=== PATIENT | female | born 1965 | race Caucasian/White ===

== ENCOUNTER → 2017-11-07 07:27 | Outpatient (CLI) | payer OTHER, SELFPAY ==
--- NOTE | 2017-11-07 07:31 | RAD_ITS ---
STUDY: X-RAY - RIGHT KNEE REASON FOR EXAM: Female, 52 years old. Chronic knee pain. TECHNIQUE: 4 view(s) of the knee. COMPARISON: None. FINDINGS: Normal visualized distal femur. Normal visualized proximal tibia and fibula. Normal proximal tibiofibular articulation. Normal medial femorotibial compartment. Normal lateral femorotibial compartment. Normal patellofemoral articulation. The soft tissue structures are unremarkable. RAD/Knee 4 or More Views IMPRESSION: Normal x-ray examination of the knee. Electronically Signed: Axel Birch MD at 15:47 EST Tel [phone], Service support ,
== END ==
PROVIDERS: Family Provider Internal Medicine; PCP Internal Medicine; Visit Provider Internal Medicine
DX: M25.561 Pain in right knee (principal)
CPT/HCPCS: 73564

== ENCOUNTER 2017-11-17 06:57 | Outpatient (RCR) | payer OTHER, SELFPAY ==
--- NOTE | 2017-11-17 07:50 | HP.PTEVAL_ITS ---
Patient's Visit Information OMAR MCNEAL is a 52 year old F referred to Physical Therapy by DO JUSTO Shah with a diagnosis of Knee Pain. Date of Evaluation: 11/17/17 Physical Therapist: Muna Souza - Visit Plan Plan: Hold- return to MD for further evaluation- possible meniscal tear - Subjective Subjective: Patient reports that the right knee has been sore for about 5 weeks. So painful so she knew she couldn't run. Thought either OA or strain. Pain is located on the medial side. Was getting better but felt like she backslide yesterday- no known injurry. Took a 5 mile walk with hills. Has had x-rays but no MRI. Went to see Dr. Grey who put her on 400 Advil 2x a day. Agg : driving, standing up from sitting. worst: 7/10 Best: 1/10 eases: trying to rest. workout 5-6x a week- running, lifting weights- does some pool. radiates to the hip stinging every once in awhile. Describes pain as sharp but then changes to an ache. Sleep: it has when she moves position. Wears good shoes and orthotics. Sprained the knee a long time ago. PMHx: none Meds: none - Objective Posture: good throughout. Gait: no deviation. Stairs: asc/desc 8 recip with 1 HR- poor descending pattern with decreased control with pain. HR/TR: WNL. Balance: 30 sec SLS without. Squat: good technique with pain. Palpation: tender along medial joint line. ROM: 0-130 degrees. Strength: 5/5 throughout LE Core: good. Flex: HS: moderate, Gastroc: moderate - Rehabilitation Potential Physical Therapy Diagnosis: Patient presents with hypomobility- she has increased pain with ADL's and recreational actvities - Anticipated Interventions Patient/Client Instruction: Educate patient on: Benefits of Fitness Program For the Purpose of:: To increase tolerance to activity/condition/position Thank you for the opportunity to evaluate your patient. For Medicare and Medicare HMO plans, please review the plan of care and approve it. It will need to be FAXED BACK to us at [phone] for Medicare purposes. Please let me know if there are questions or concerns regarding this plan of care. Physician Signature: Date:
--- NOTE | 2017-12-22 10:56 | HP.PTDCSUM ---
HP - PT D/C Summary It has been my pleasure to treat OMAR MCNEAL under orders from Joselin Grey DO, for the diagnosis of Knee Pain for a total of 1 visit(s). Discharge Date: Please see the following information for a summary of their discharge status. - Plan Plan: Hold- return to MD for further evaluation- possible meniscal tear - D/C Information If there are questions or concerns regarding this patient's physical therapy, please feel free to call me at [phone]. Thank you for the referral of this patient. Sincerely, Muna Souza
== END 2017-11-17 19:00 | disposition home or self-care (01) ==
LOC: PT 06:57
PROVIDERS: Family Provider Internal Medicine; PCP Internal Medicine; Visit Provider Internal Medicine
DX: M25.561 Pain in right knee (principal)
CPT/HCPCS: 97161

== ENCOUNTER → 2017-12-01 07:00 | Outpatient (CLI) | payer OTHER, SELFPAY ==
--- NOTE | 2017-12-01 06:59 | HPBI_ITS ---
MAMMOGRAPHY - BILATERAL SCREENING REASON FOR EXAM: Female, 52 years old. Routine annual screening examination. PERTINENT HISTORY: Sister with breast cancer. TECHNIQUE: Digital bilateral breast audi (3D mammographic acquisition) in the CC and MLO projections. 2-D mediolateral oblique (MLO) and craniocaudad (CC) views of both breasts were obtained. CAD: Full Field Digital Mammography with Computer Added Detection was performed. COMPARISON: Comparison is made with prior study dated November 28, 2016 and November 28, 2015. FINDINGS: Breast Composition: There are scattered areas of fibroglandular density. There are no dominant masses or suspicious calcifications. No other significant abnormalities are identified. There has been no significant change since the prior study. HPBI/SCREENING MAMM (CAD), BILAT IMPRESSION: Stable bilateral screening mammogram. Yearly follow-up mammogram recommended. (A) ASSESSMENT CATEGORY: BIRADS Category 1: Negative. A letter regarding these results will be sent to the patient by the facility within 30 days. Approximately 10% of breast cancers are not detected by mammography. A normal mammogram should not delay biopsy of a clinically suspicious abnormality. [id number] Electronically Signed: Axel Birch MD at 8:16 EDT Tel [phone], Service support ,
== END ==
PROVIDERS: Family Provider Internal Medicine; PCP Internal Medicine; Visit Provider Obstetrics & Gynecology
DX: Z12.31 Encounter for screening mammogram for malignant neoplasm of breast (principal)
CPT/HCPCS: 77063; 77067

== ENCOUNTER → 2017-12-22 06:47 | Outpatient (CLI) | payer OTHER, SELFPAY ==
--- NOTE | 2017-12-22 06:51 | MRI_ITS ---
STUDY: MRI RIGHT KNEE REASON FOR EXAM: Medial right knee pain for about 6 weeks, rule out meniscal tear. TECHNIQUE: Standardized fat and water weighted pulse sequences were obtained in all 3 orthogonal planes. COMPARISON: Radiographs 11/07/2017. FINDINGS: There is a small complex tear of the posterior horn of the medial meniscus (proton-density sagittal images 32, 33). There is mild peripheral subluxation of the medial meniscus. Normal hyaline cartilage of the medial femorotibial compartment. Normal medial femoral condyle and tibial plateau. There is mild periligamentous inflammation of the medial collateral ligament (T2 coronal images 15, 16). Normal distal semimembranosus, gracilis and semitendinosus tendons. There may be a small horizontal tear of the superior articular surface of the posterior horn of the lateral meniscus, identified only on a single slice (proton-density sagittal image 11). Normal hyaline cartilage of the lateral femorotibial compartment. Normal lateral femoral condyle and tibial plateau. Normal proximal tibiofibular articulation. Normal lateral collateral (fibular) ligament. Normal popliteus tendon. Normal biceps femoris tendon. Normal anterior cruciate ligament (ACL). Normal posterior cruciate ligament (PCL). Normal congruent patellofemoral articulation. Normal hyaline cartilage of the patellofemoral compartment. Normal medial and lateral patellar retinaculum. Normal visualized quadriceps tendon. Normal patellar tendon. Normal Hoffa's fat pad. There is a small joint effusion. There is a small popliteal cyst with mild extravasation of fluid (T2 sagittal images 18, 19). The otherwise visualized osseous structures are unremarkable. MRI/Lower Ext Joint Only (Routine) IMPRESSION: Small medial meniscal tear. Mild periligamentous inflammation of the medial collateral ligament. There may be a small lateral meniscal tear, identified only on a single slice. Small joint effusion. Small popliteal cyst with mild extravasation of fluid. Electronically Signed: Zen Donovan MD at 8:46 EDT Tel , Service support ,
== END ==
PROVIDERS: Family Provider Internal Medicine; PCP Internal Medicine; Visit Provider Internal Medicine
DX: S83.241A Other tear of medial meniscus, current injury, right knee, initial encounter (principal); X58.XXXA Exposure to other specified factors, initial encounter; M71.21 Synovial cyst of popliteal space [Baker], right knee
CPT/HCPCS: 73721

== ENCOUNTER → 2018-01-20 09:00 | Outpatient (CLI) | payer OTHER, SELFPAY ==
--- NOTE | 2018-01-20 09:12 | EKG12_ITS ---
Test Reason : PRE OP Blood Pressure : / mmHG Vent. Rate : 071 BPM Atrial Rate : 071 BPM P-R Int : 146 ms QRS Dur : 082 ms QT Int : 390 ms P-R-T Axes : 074 057 057 degrees QTc Int : 423 ms Normal sinus rhythm Normal ECG Confirmed by SOPHIA ESPINOSA, RICCI ([id number]), assistant film editor ARYAN MCNEAL ([id number]) on 01/21/2018 2:18:06 PM Referred By: Yaniv Brown Confirmed By:RICCI CORTES MD
[2018-01-20 15:28] LABS: Hematocrit 38.6 % (37-47); Hemoglobin 12.9 g/dl (12.0-15.0); Mean Corp Hgb Conc 33.4 g/gl (32-36); Mean Corpuscular Hgb 31.7 pg (27.0-32.0); Mean Corpuscular Volume 94.8 fL (81-99); Mean Platelet Vol. 9.4 fl (6.2-12.0); Platelet Count 245 K/mm3 (150-450); RBC Distribution Width CV 12.4 % (11.6-14.6); RBC Distribution Width SD 42.2 fl (35.1-43.9); Red Blood Count 4.07 M/mm3 (4.2-5.4); White Blood Count 6.6 K/mm3 (4.4-11.0)
[2018-01-20 15:40] LABS: Anion Gap 8 (5-15); BUN 24 mg/dL (7-18); BUN/Creat Ratio 27.9 RATIO (10-20); Calcium,Total 8.7 mg/dL (8.5-10.1); Chloride 107 mmol/L (98-107); Creatinine, Serum 0.86 mg/dL (0.55-1.02); EST Glomerular Filtration Rate 73 mL/min (>60); Est Glom Filt Rate - Afr Amer 88 mL/min (>60); Glucose 75 mg/dL (74-106); Potassium 4.2 mmol/L (3.5-5.1); Sodium Level 141 mmol/L (136-145)
[2018-01-20 15:41] LABS: Scan Indicated on CBC? Y/N NO
== END ==
PROVIDERS: Family Provider Internal Medicine; PCP Internal Medicine; Visit Provider Physician Assistant
DX: Z01.818 Encounter for other preprocedural examination (principal); Z01.810 Encounter for preprocedural cardiovascular examination
CPT/HCPCS: 36415; 80048; 85027; 93005

== ENCOUNTER 2018-02-27 07:00 | Outpatient (RCR) | payer OTHER, SELFPAY ==
--- NOTE | 2018-02-06 09:37 | HP.PTEVAL_ITS ---
Patient's Visit Information OMAR MCNEAL is a 53 year old F referred to Physical Therapy by Yaniv Brown with a diagnosis of Right Knee Scope. Date of Evaluation: 02/06/18 Physical Therapist: Muna Souza - Visit Plan Frequency: 2x /Week Duration: 2 Weeks Plan: Focus on LE ROM and strength with functional mobility - Subjective Subjective: Patient had a knee scope by Dr. Toussaint on 01/30/18. She went home on the day of surgery and has been doing well. She has more discomfort with flexion than extension. Pain at its worst is a 2/10 and best is a 0/10. Pain is aggravated by bending and being up on the leg for long periods of time. Eases include ice, elevation and rest. She is very active and prior to surgery she was working out 3-5x a week including cardio and lifting. Work: physician at [email or web address]. Sleep: not disturbed. PMHx/Meds: see chart - Objective Posture: FH, RS- can correct with verbal cues. Gait: slightly antalgic- decreased heel/toe pattern secondary to decreased ROM. Stairs: asc/desc recip with 1 HR with poor control/pattern. HR/TR: able with reports of outside stretching. SLS: 30 sec with increased muscle activation. Palpation: not tender. Observation: incision healing with sutures intact. mild bruising around the knee. ROM: 5-100 degrees with discomfort at end range. Strength: Ankle: 5/5, Knee: quad set visible, Hip: 4+/5 core: fair plus - Goals Goal 1:: Patient will be I with HEP and progression Goal Time Frame: 4-6 Weeks Goal 2:: Patient will asc/desc 8 stairs recip with good control Goal Time Frame: 4-6 Weeks Goal 3:: Patient will ambulate >300 feet with a normalized gait pattern Goal Time Frame: 4-6 Weeks Goal 4:: Patient will demo 0-125 degrees of ROM in the knee Goal Time Frame: 4-6 Weeks - Rehabilitation Potential Physical Therapy Diagnosis: Patient presents with hypomobility- she has decreased ROM, strength and muscular endurance s/p knee scope leading to abnormal gait pattern and decreased ability to perform ALD's. Rehabilitation Potential: Good - Anticipated Interventions Patient/Client Instruction: Educate patient on: Benefits of Fitness Program For the Purpose of:: To improve ability to perform ADL's Therapeutic Exercise to Include: Strength training, Endurance training, Balance training, Agility training, Body mechanics, Gait and locomotor training, Passive ROM, Active ROM, Dynamic Lumbar Stabilization For the Purpose of:: To improve muscle performance and motor function TENS: Yes Cryotherapy (ice pack, ice massage): Yes Thermo therapy (hot pack): Yes Ultrasound (thermal/non thermal): Yes For the Purpose of:: To decrease pain Thank you for the opportunity to evaluate your patient. For Medicare and Medicare HMO plans, please review the plan of care and approve it. It will need to be FAXED BACK to us at [phone] for Medicare purposes. Please let me know if there are questions or concerns regarding this plan of care. Physician Signature: Date:
--- NOTE | 2018-02-27 07:29 | HP.PTDCSUM_ITS ---
HP - PT D/C Summary It has been my pleasure to treat OMAR MCNEAL under orders from Yaniv Brown , for the diagnosis of Right Knee Scope for a total of 7 visit(s). Discharge Date: Please see the following information for a summary of their discharge status. - Subjective Subjective: Patient reports a catch every so often- then it gets better. She can get through the day at work without issues. Pain is minimal if anything- is working out with [employer] again. - Overall Improvement % Improvement: 85 - Objective Objective/Function: Posture: good throughout. Gait: no deviation noted. Squat : good technique- not past 90 degrees. HR.TR: good. SLS: 30 sec. rom: 0-130 degrees. Strength: left flex: 35,36,36 extn: 61,58,67. Right flxn: 31,46,39, extn: 54, 60,75 - Goals Goal 1:: Patient will be I with HEP and progression Goal Progress: Goal Met Goal 2:: Patient will asc/desc 8 stairs recip with good control Goal Progress: Goal Met Goal 3:: Patient will ambulate >300 feet with a normalized gait pattern Goal Progress: Goal Met Goal 4:: Patient will demo 0-125 degrees of ROM in the knee Goal Progress: Goal Met - Plan Plan: Discharge to HEP - D/C Information If there are questions or concerns regarding this patient's physical therapy, please feel free to call me at [phone]. Thank you for the referral of this patient. Sincerely, Muna Souza
== END 2018-02-27 19:00 | disposition home or self-care (01) ==
LOC: PT 07:00
PROVIDERS: Family Provider Internal Medicine; PCP Internal Medicine; Visit Provider Physician Assistant
DX: S83.281D Other tear of lateral meniscus, current injury, right knee, subsequent encounter (principal); S83.241D Other tear of medial meniscus, current injury, right knee, subsequent encounter
CPT/HCPCS: 97110; 97161; 97164

== ENCOUNTER → 2018-06-16 07:56 | Outpatient (CLI) | payer OTHER, SELFPAY ==
--- NOTE | 2018-06-16 08:10 | US_ITS ---
STUDY: THYROID ULTRASOUND REASON FOR EXAM: Female, 53 years old. History of nodules TECHNIQUE: Ultrasound evaluation of the thyroid was performed with real-time and static vásquez-scale imaging. COMPARISON: November 28, 2016 ultrasound thyroid FINDINGS: RIGHT LOBE: The right lobe of the thyroid gland measures 4.6 x 1.6 x 1.3 cm. There is a heterogeneous echotexture. There is a right to midline isoechoic nodule adjacent to the thyroid that measures 9.3 x 5.9 mm. This shows focal peripheral vascularity. This is relatively similar to the prior study. There is overall inhomogeneity of the thyroid. The cystic spaces that were seen on the prior study in the right thyroid are not well-visualized. LEFT LOBE: The left lobe of the thyroid gland measures 4.1 x 1.4 x 1.0 cm. There is a heterogeneous echotexture. There is a lower pole hyperechoic nodule with some posterior shadowing measuring 2 x 3 x 2 mm. ISTHMUS: The isthmus measures 2 mm. . The regional lymph nodes are normal. US/Thyroid IMPRESSION: Resolution of the colloid cyst in the right thyroid. Stable isoechoic nodules within the right thyroid/isthmus. Stable isoechoic nodule in the left thyroid and/or calcification with shadowing. Electronically Signed: Nerissa Vo MD at 18:57 EDT Tel , Service support ,
--- NOTE | 2018-06-16 08:20 | BD_ITS ---
STUDY: DUAL ENERGY X-RAY ABSORPTIOMETRY / DXA REASON FOR EXAM: Female, 53 years old. The patient is postmenopausal. Loss of height. TECHNIQUE: Bone Mineral Density (BMD) measurements of lumbar spine and bilateral hips were obtained. COMPARISON: Comparison is made with prior study dated November 28, 2015. FINDINGS: Lumbar Spine (L1-L4): g/cm2 (1.096) / T-score (-0.7) / Z-score (0.0) Findings are suggestive of normal bone density with a low fracture risk. Increased kyphosis. Left Femur Total: g/cm2 (1.047) / T-score (0.3) / Z-score (0.9) Left Femoral Neck: g/cm2 (0.993) / T-score (-0.3) / Z-score (0.7) Right Femur Total: g/cm2 (0.888) / T-score (-1.0) / Z-score (-0.3) Right Femoral Neck: g/cm2 (0.844) / T-score (-1.4) / Z-score (-0.4) The T-Scores on the most recent prior examination were: Lumbar Spine (L1-L4): There has been worsening of bone density since the previous examination. Left Femur Total: which represents a worsening of 3.2%. Right Femur Total: which represents a worsening of 8.5%. BD/Dexa Bone Density Study IMPRESSION: The patient is considered osteopenic as outlined below according to World Rub[employer] Organization (WHO) criteria with a moderate fracture risk. There has been worsening of bone density since the previous examination. Reference Information: The T-score is the number of standard deviations above or below the standard which is normal for young adults at their peak bone mineral density. The World Health Organization (WHO) interprets the T-scores as follows: Above -1 Normal bone density Between -1 and -2.5 Osteopenia Equal to / or below -2.5 Osteoporosis As a practical clinical guideline, osteopenia may be graded as follows: Mild -1 through -1.5 Moderate -1.6 through -2.0 Severe -2.1 through -2.4 The Z-score is the number of standard deviations above or below age-matched controls. A Z-score of less than -1.5 would be considered abnormal. References: 1. NIH Osteoporosis and Related Bone Diseases http://www.osteo.org 2. International Society for Clinical Densitometry http://www.iscd.org 3. National Osteoporosis Foundation http://www.nof.org Electronically Signed: Axel Birch MD at 13:38 EDT Tel [phone], Service support ,
== END ==
PROVIDERS: Family Provider Internal Medicine; PCP Internal Medicine; Visit Provider Internal Medicine
DX: E04.1 Nontoxic single thyroid nodule (principal); Z78.0 Asymptomatic menopausal state
CPT/HCPCS: 76536; 77080

== ENCOUNTER → 2018-12-16 07:00 | Outpatient (CLI) | payer OTHER, SELFPAY ==
--- NOTE | 2018-12-16 07:04 | BI_ITS ---
MAMMOGRAPHY - BILATERAL SCREENING REASON FOR EXAM: Female, 53 years old. Routine annual screening examination. PERTINENT HISTORY: Sister with breast cancer. Aunts with breast cancer. TECHNIQUE: Digital bilateral breast audi (3D mammographic acquisition) in the CC and MLO projections. 2-D mediolateral oblique (MLO) and craniocaudad (CC) views of both breasts were obtained. CAD: Full Field Digital Mammography with Computer Added Detection was performed. COMPARISON: Comparison is made with prior examination dated December 01, 2017 and November 28, 2016. FINDINGS: Breast Composition: There are scattered areas of fibroglandular density. There are no dominant masses or suspicious calcifications. Stable asymmetry of breast tissue in the deep upper lateral aspect of the left breast. Correlation with ultrasound is recommended. No other significant abnormalities are identified. BI/SCREENING MAMM (CAD), BILAT IMPRESSION: Stable bilateral screening mammogram. Correlation with ultrasound of the deep upper lateral aspect of the left breast is recommended for further evaluation. ASSESSMENT CATEGORY: BIRADS Category 0: Incomplete. Need additional imaging evaluation. A letter regarding these results will be sent to the patient by the facility within 30 days. Approximately 10% of breast cancers are not detected by mammography. A normal mammogram should not delay biopsy of a clinically suspicious abnormality. [id number] Electronically Signed: Axel Birch, at 8:43 EDT , Service support ,
== END ==
PROVIDERS: Family Provider Internal Medicine; PCP Internal Medicine; Referring Provider Obstetrics & Gynecology; Visit Provider Obstetrics & Gynecology
DX: Z12.31 Encounter for screening mammogram for malignant neoplasm of breast (principal); Z80.3 Family history of malignant neoplasm of breast
CPT/HCPCS: 77063; 77067

== ENCOUNTER → 2018-12-18 07:23 | Outpatient (CLI) | payer OTHER, SELFPAY ==
--- NOTE | 2018-12-18 07:24 | US_ITS ---
STUDY: ULTRASOUND BREAST - LEFT REASON FOR EXAM: Female, 53 years old. Asymmetrical density in the upper outer quadrant of the left breast. TECHNIQUE: Axial and longitudinal images of the LEFT breast were performed with a high resolution ultrasound transducer. COMPARISON: Comparison is made with prior mammogram dated December 16, 2018. FINDINGS: LEFT Breast: There is a 1 cm x 1.6 cm x 0.2 cm cyst at the 2:00 position of the breast at 6 cm from nipple. US/Breast Limited Unilateral IMPRESSION: 1 cm x 1.6 cm x 0.2 cm cyst at the 2:00 position of the breast at 6 cm from the nipple. ASSESSMENT CATEGORY: BIRADS Category 2: Benign. A letter regarding these results will be sent to the patient by the facility within 30 days. Electronically Signed: Axel Birch, at 8:10 EDT , Service support ,
== END ==
PROVIDERS: Family Provider Internal Medicine; PCP Internal Medicine; Referring Provider Obstetrics & Gynecology; Visit Provider Obstetrics & Gynecology
DX: R92.8 Other abnormal and inconclusive findings on diagnostic imaging of breast (principal)
CPT/HCPCS: 76642

== ENCOUNTER → 2019-12-21 07:26 | Outpatient (CLI) | payer OTHER, SELFPAY ==
--- NOTE | 2019-12-21 07:30 | BI_ITS ---
MAMMOGRAPHY - BILATERAL SCREENING REASON FOR EXAM: Female, 54 years old. Routine annual screening examination. PERTINENT HISTORY: Sister with breast cancer. Aunt with breast cancer. TECHNIQUE: Digital bilateral breast saul (3D mammographic acquisition) in the CC and MLO projections. 2-D mediolateral oblique (MLO) and craniocaudad (CC) views of both breasts were obtained. CAD: Full Field Digital Mammography with Computer Added Detection was performed. COMPARISON: Comparison is made with prior examination dated December 16, 2018 and December 01, 2017. FINDINGS: Breast Composition: There are scattered areas of fibroglandular density. There are no dominant masses or suspicious calcifications. Stable 2.4 cm well-defined nodule in the axillary region of the left breast. Prior sonogram demonstrated this to be a cyst. Stable appearance of the benign-appearing bilateral axillary lymph nodes. No other significant abnormalities are identified. There has been no significant change since the prior study. BI/SCREEN MAMM (CAD) W/SAUL BILAT IMPRESSION: Stable bilateral screening mammogram. Yearly follow-up mammogram recommended. (A) ASSESSMENT CATEGORY: BIRADS Category 2: Benign. A letter regarding these results will be sent to the patient by the facility within 30 days. Approximately 10% of breast cancers are not detected by mammography. A normal mammogram should not delay biopsy of a clinically suspicious abnormality. [id number] Electronically Signed: Axel Birch, at 8:38 EDT , Service support ,
== END ==
PROVIDERS: Family Provider Internal Medicine; PCP Internal Medicine; Referring Provider Obstetrics & Gynecology; Visit Provider Obstetrics & Gynecology
DX: Z12.31 Encounter for screening mammogram for malignant neoplasm of breast (principal); Z80.3 Family history of malignant neoplasm of breast
CPT/HCPCS: 77063; 77067

== ENCOUNTER → 2020-12-26 07:18 | Outpatient (CLI) | payer OTHER, SELFPAY ==
--- NOTE | 2020-12-26 07:21 | BI_ITS ---
MAMMOGRAPHY - BILATERAL SCREENING REASON FOR EXAM: Female, 55 years old. Routine annual screening examination. PERTINENT HISTORY: Sister with breast cancer. Aunts with breast cancer. TECHNIQUE: Digital bilateral breast saul (3D mammographic acquisition) in the CC and MLO projections. 2-D mediolateral oblique (MLO) and craniocaudad (CC) views of both breasts were obtained. CAD: Full Field Digital Mammography with Computer Added Detection was performed. COMPARISON: Comparison is made with prior study dated 12/21/2019 and 12/16/2018. FINDINGS: Breast Composition: There are scattered areas of fibroglandular density. There are no dominant masses or suspicious calcifications. Stable asymmetry of breast tissue in the deep upper lateral aspect of the left breast. Prior sonogram demonstrated a cyst at that site. Stable benign-appearing bilateral axillary lymph nodes. No other significant abnormalities are identified. There has been no significant change since the prior study. BI/SCRN MAMM (CAD)W/SAUL BILAT IMPRESSION: Stable bilateral screening mammogram. Yearly follow-up mammogram recommended. (A) ASSESSMENT CATEGORY: BIRADS Category 2: Benign. A letter regarding these results will be sent to the patient by the facility within 30 days. Approximately 10% of breast cancers are not detected by mammography. A normal mammogram should not delay biopsy of a clinically suspicious abnormality. [id number] Electronically Signed: Axel Birch MD at 9:19 EDT , Service support ,
== END ==
PROVIDERS: PCP Internal Medicine; Referring Provider Obstetrics & Gynecology; Visit Provider Obstetrics & Gynecology
DX: Z12.31 Encounter for screening mammogram for malignant neoplasm of breast (principal)
CPT/HCPCS: 77063; 77067

== ENCOUNTER 2021-05-29 08:00 | Outpatient (RCR) | payer OTHER, SELFPAY ==
--- NOTE | 2021-04-25 10:04 | HP.PTEVAL_ITS ---
Patient's Visit Information OMAR MCNEAL is a 56 year old F referred to Physical Therapy by Dr. Joselin Grey DO with a diagnosis of Left Knee Pain. Date of Evaluation: 04/25/21 Physical Therapist: Muna Souza DPT - Visit Plan Frequency: 2x /Week Duration: 4 Weeks Plan: Focus on LE and core strength/stabilization - Subjective Patient reports that she was trying to run on the TM in December- the day before she had been walking and had a twinge- and then when she was running she felt a pop on the left knee- pain is located on bilateral joint lines but the medial side is worse. Fell March 18 tripped over the garbage can lid and ended up with a concussion and was bruised on both legs. Talked to [facility] who told her to ride bike backwards so she tried an ellip and its feeling a little better. Describes the pain in the knee as sharp when she first stands up then once she gets moving its dull and achy- more sharp with activity. Has not tried to run since it hurt. Worst: 12/23 Agg: running, twisting, standing up. Best: 09/24Eases: massage, cupping and ultrasound. Does have radiating pain into the calf and into the hip. No N/T in the toes. Does not describe any instability or buckling but is always are. Has had x-ray but no MRI at this point. No injections. Sleep: hard to get comfortable so she will sleep in her chair. Has not seen Orthopedics. 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 PMHx: reflux, high cholesterol, HTN Meds: prilosec, ibuprofen x2, meloxicam, lanasopril - Objective Posture: FH, RS- can correct but is unable to maintain. Gait: slightly antalgic- decrease stance on the left LE with decreased heel strike. HR/TR: able with pain reported with TR. SLS: 15 sec with increased muscle sway and muscle activation. Stairs: asc/desc 8 recip with no HR- poor control with descent. Palpation: tender along medial and lateral joint line- medial>lateral. ROM: 0-130 degrees- pain at end range. Strength: Core: fair, Hip: 4/5 throughout Knee: 4+/5, Ankle: 5/5. Special Test: Nilam: positive. Flex: HS: severe, Gastroc: moderate - Goals Goal 1:: Patient will be I with HEP and progression Goal Time Frame: 4-6 Weeks Goal 2:: Patient will squat with good mechanics Goal Time Frame: 4-6 Weeks Goal 3:: Patient will maintain proper posture t/o to demo increased core s/s Goal Time Frame: 4-6 Weeks Goal 4:: Patient will report no more than 2/10 pain for 1 week with all normal ADL's Goal Time Frame: 4-6 Weeks - Rehabilitation Potential Physical Therapy Diagnosis: Patient presents with hypomobility- she has decreased pain free ROM, LE and core strength/stabilization, flexibility and muscular endurance leading to pain with ADL's. Rehabilitation Potential: Fair - Anticipated Interventions Patient/Client Instruction: Educate patient on: Benefits of Fitness Program Therapeutic Exercise to Include: Strength training, Endurance training, Balance training, Coordination, Agility training, Body mechanics, Postural training, Flexibilty training, Gait and locomotor training, Neuromotor development, Dynamic Lumbar Stabilization, Scapular Strength/Stabilization For the Purpose of:: To improve muscle performance and motor function Thank you for the opportunity to evaluate your patient. For Medicare and Medicare HMO plans, please review the plan of care and approve it. It will need to be FAXED BACK to us at [phone] for Medicare purposes. For Medicare only, by signing this I certify the plan of care. Please let me know if there are questions or concerns regarding this plan of care. Physician Signature: Date:
--- NOTE | 2021-05-29 09:03 | HP.PTDCSUM ---
It has been my pleasure to treat OMRA MCNEAL referred by Dr. Joselin Grey DO, with the diagnosis of Left Knee Pain for a total of 7 visit(s). Discharge Date: 05/29/21 Please see the following information for a summary of their discharge status. Subjective: Pt. reports being about 95%. She reports overall much better. Pt. reports 0-1/10 pain after exercises this date. Objective/Function: Pt. has 5/5 strength throughout BLEs. Pt. has good ROM of her L knee 0-0-127deg. Pt. does have tight B HS, but symmetrical and non painful. Pt. has good squat mechanics with no lateral off loading or wt. shifting. Pt. is back to most activities, minus running. I talked to her about easing back into running with a walk to run program as tolerated. Pt. consents. She is to continue with her current exercise routine. Goal 1:: Patient will be I with HEP and progression Goal Progress: Goal Met Goal 2:: Patient will squat with good mechanics Goal Progress: Goal Met Goal 3:: Patient will maintain proper posture t/o to demo increased core s/s Goal Progress: Goal Met Goal 4:: Patient will report no more than 2/10 pain for 1 week with all normal ADL's Goal Progress: Goal Met Plan: DC to HEP at this point in time. Discharge Comments: Pt. did well with strengthening and stability exercises. Pt. is doing much better. she will be DC to HEP at this point in time. If there are questions or concerns regarding this patient's physical therapy, please feel free to call me at [phone]. Thank you for the referral of this patient. Sincerely, Rafat Kessleros, DPT Balance/Gait/Functional tests - Balance/Special Test Scores Lower Extremity Functional Score: 80
== END 2021-05-29 19:00 | disposition home or self-care (01) ==
LOC: PT 08:00
PROVIDERS: PCP Internal Medicine; Referring Provider Internal Medicine; Visit Provider Internal Medicine
DX: M25.561 Pain in right knee (principal); M25.562 Pain in left knee
CPT/HCPCS: 97110; 97162; 97164

== ENCOUNTER → 2022-01-29 | Outpatient (CLI) | payer OTHER, SELFPAY ==
--- NOTE | 2022-01-29 07:29 | BI_ITS ---
MAMMOGRAPHY - BILATERAL SCREENING REASON FOR EXAM: Female, 57 years old. Routine annual screening examination. PERTINENT HISTORY: Sister with breast cancer. Aunts with breast cancer. TECHNIQUE: Digital bilateral breast saul (3D mammographic acquisition) in the CC and MLO projections. 2-D mediolateral oblique (MLO) and craniocaudad (CC) views of both breasts were obtained. CAD: Full Field Digital Mammography with Computer Added Detection was performed. COMPARISON: Comparison is made with prior study dated 12/26/2020 and 12/21/2011. FINDINGS: Breast Composition: There are scattered areas of fibroglandular density. There are no dominant masses or suspicious calcifications. Stable small benign-appearing bilateral axillary lymph nodes. No other significant abnormalities are identified. There has been no significant change since the prior study. BI/SCRN MAMM (CAD)W/SAUL BILAT IMPRESSION: Stable bilateral screening mammogram. Yearly follow-up mammogram recommended. (A) ASSESSMENT CATEGORY: BIRADS Category 2: Benign. A letter regarding these results will be sent to the patient by the facility within 30 days. Approximately 10% of breast cancers are not detected by mammography. A normal mammogram should not delay biopsy of a clinically suspicious abnormality. [id number] Electronically Signed: Axel Birch MD at 8:29 EDT ,
== END | disposition home or self-care (01) ==
LOC: OPBI 07:27
PROVIDERS: PCP Internal Medicine; Visit Provider Obstetrics & Gynecology
DX: Z12.31 Encounter for screening mammogram for malignant neoplasm of breast (principal); Z80.3 Family history of malignant neoplasm of breast
CPT/HCPCS: 77063; 77067

== ENCOUNTER → 2022-10-11 | Outpatient (CLI) | payer SELFPAY, OTHER ==
--- NOTE | 2022-10-11 16:37 | US_ITS ---
STUDY: THYROID ULTRASOUND REASON FOR EXAM: Female, 57 years old. Thyroid nodule. TECHNIQUE: Ultrasound evaluation of the thyroid was performed with real-time and static vásquez-scale imaging. COMPARISON: June 16, 2018. FINDINGS: RIGHT LOBE: The right lobe of the thyroid gland measures 4.6 x 1.9 x 1.7 cm. There is a heterogeneous echotexture. There is a 1.4 x 1.0 x 1.4 cm nodule in the lower pole which is hyper echoic and well marginated. Slightly higher is a 0.6 x 0.7 x 0.4 cm mixed solid and cystic nodule which is mildly hypoechoic. Normal vascularity on Doppler imaging. LEFT LOBE: The left lobe of the thyroid gland measures 5.4 x 1.5 x 1.6 cm. There is a heterogeneous echotexture. In the lower pole is a 0.4 x 0.3 x 0.3 cm hypoechoic nodule with large central calcification acoustic shadowing. ISTHMUS: The isthmus measures 0.4 cm. The regional lymph nodes are normal. US/Thyroid IMPRESSION: 1. Stable solid nodule in the right thyroid. This is considered mildly suspicious, TR 3 by TI-RADS categorization. No FNA or follow-up is necessary. Smaller mixed solid and cystic nodule is also considered mildly suspicious but requires no follow-up due to its small size. 2. The stable calcification in the lower pole of the left kidney is considered moderately suspicious, TR 4. No FNA or follow-up is required due to its small size. Electronically Signed: Scot Piña DO at 17:25 EST ,
== END | disposition home or self-care (01) ==
LOC: US 16:36
PROVIDERS: PCP Internal Medicine; Visit Provider Internal Medicine
DX: E04.1 Nontoxic single thyroid nodule (principal)
CPT/HCPCS: 76536

== ENCOUNTER → 2022-10-22 | Outpatient (CLI) | payer OTHER, SELFPAY ==
--- NOTE | 2022-10-22 08:33 | BD_ITS ---
STUDY: DUAL ENERGY X-RAY ABSORPTIOMETRY / DXA REASON FOR EXAM: Female, 57 years old. [id number] -- postmenopausal TECHNIQUE: Bone Mineral Density (BMD) measurements of lumbar spine and bilateral hips were obtained. COMPARISON: Comparison is made with prior study 06/16/2018. FINDINGS: Lumbar Spine (L1-L4): g/cm2 (0.927) / T-score (-1.1) / Z-score (0.2) Findings are suggestive of osteopenia with a low fracture risk. Left Femur Total: g/cm2 (0.981) / T-score (0.3) / Z-score (1.2) Left Femoral Neck: g/cm2 (0.791) / T-score (-0.5) / Z-score (0.7) Right Femur Total: g/cm2 (0.908) / T-score (-0.3) / Z-score (0.6) Right Femoral Neck: g/cm2 (0.7-1) / T-score (-1.2) / Z-score (0.1) The T-Scores on the most recent prior examination were: Lumbar Spine (L1-L4): There has been worsening of bone density since the previous examination. Left Femur Total: which represents an improvement of 0.1%. Right Femur Total: which represents an improvement of 10%. BD/Dexa Bone Density Study IMPRESSION: The patient is considered osteopenic as outlined below according to World Rub[employer] Organization (WHO) criteria with a low fracture risk. There has been improvement of bone density since the previous examination. Reference Information: The T-score is the number of standard deviations above or below the standard which is normal for young adults at their peak bone mineral density. The World Health Organization (WHO) interprets the T-scores as follows: Above -1 Normal bone density Between -1 and -2.5 Osteopenia Equal to / or below -2.5 Osteoporosis As a practical clinical guideline, osteopenia may be graded as follows: Mild -1 through -1.5 Moderate -1.6 through -2.0 Severe -2.1 through -2.4 The Z-score is the number of standard deviations above or below age-matched controls. A Z-score of less than -1.5 would be considered abnormal. References: 1. NIH Osteoporosis and Related Bone Diseases www osteo.org 2. International Society for Clinical Densitometry www iscd.org 3. National Osteoporosis Foundation www nof.org Electronically Signed: Axel Birch MD at 8:49 EST ,
== END | disposition home or self-care (01) ==
LOC: OPBD 08:25
PROVIDERS: PCP Internal Medicine; Referring Provider Internal Medicine; Visit Provider Internal Medicine
DX: Z13.820 Encounter for screening for osteoporosis (principal); Z78.0 Asymptomatic menopausal state
CPT/HCPCS: 77080

== ENCOUNTER → 2023-02-04 | Outpatient (CLI) | payer OTHER, SELFPAY ==
--- NOTE | 2023-02-04 07:28 | BI_ITS ---
MAMMOGRAPHY - BILATERAL SCREENING REASON FOR EXAM: Female, 58 years old. Routine annual screening examination. PERTINENT HISTORY: Sister with breast cancer. 4 paternal aunts with breast cancer. TECHNIQUE: Digital bilateral breast saul (3D mammographic acquisition) in the CC and MLO projections. 2-D mediolateral oblique (MLO) and craniocaudad (CC) views of both breasts were obtained. CAD: Full Field Digital Mammography with Computer Added Detection was performed. COMPARISON: Mammogram from 01/29/2022, 12/26/2020. FINDINGS: Breast Composition: There are scattered areas of fibroglandular density. There are no dominant masses or suspicious calcifications. Stable small benign-appearing bilateral axillary lymph nodes. No other significant abnormalities are identified. There has been no significant change since the prior study. BI/SCRN MAMM (CAD)W/SAUL BILAT IMPRESSION: Stable bilateral screening mammogram. Yearly follow-up mammogram recommended. (A) ASSESSMENT CATEGORY: BIRADS Category 2: Benign. A letter regarding these results will be sent to the patient by the facility within 30 days. Approximately 10% of breast cancers are not detected by mammography. A normal mammogram should not delay biopsy of a clinically suspicious abnormality. Electronically Signed: Ramesh Virk MD at 8:19 EDT ,
== END | disposition home or self-care (01) ==
LOC: OPBI 07:26
PROVIDERS: PCP Internal Medicine; Referring Provider Internal Medicine; Visit Provider Internal Medicine
DX: Z12.31 Encounter for screening mammogram for malignant neoplasm of breast (principal)
CPT/HCPCS: 77063; 77067

== ENCOUNTER → 2024-01-16 | Outpatient (CLI) | payer OTHER, SELFPAY ==
--- NOTE | 2024-01-16 07:22 | ECHOD_ITS ---
Reason For Study: RIGHT BUNDLE BLOCK Procedure This was a 2D Doppler, Color Flow transthoracic echocardiogram. Exam performed in department. Left Ventricle Normal LV size. Left ventricular systolic function is normal. The estimated ejection fraction is 65 %. Stage 1 diastolic dysfunction. No regional wall motion abnormalities noted. Right Ventricle Normal RV size. Normal systolic function. Atria Normal left atrium. Normal right atrium. Mitral Valve Normal mitral valve. Tricuspid Valve Normal tricuspid valve. Aortic Valve Trisinus/trileaflet aortic valve. Pulmonic Valve Normal pulmonic valve. Great Vessels Normal aortic root. The pulmonary artery is normal size. Normal inferior vena cava. Pericardium/Pleural No pericardial effusion. MMode/2D Measurements & Calculations LVIDd: 4.8 cm IVSd: 0.96 cm Ao root diam: 3.1 cm LVIDs: 3.3 cm LVPWd: 0.89 cm RVDd: 4.0 cm FS: 31.8 % LAV(MOD-bp): 40.9 ml LVAd ap4: 31.2 cm2 SV(MOD-sp4): 59.4 ml LAV(MOD-bp) Indexed: 19.8 ml/m2 LVLd ap4: 8.1 cm LAV(MOD-sp2): 40.8 ml EDV(MOD-sp4): 96.3 ml LAV(MOD-sp4): 40.3 ml EDV(sp4-el): 102.2 ml LVAs ap4: 16.9 cm2 LVLs ap4: 6.6 cm ESV(MOD-sp4): 36.9 ml ESV(sp4-el): 36.8 ml EF(MOD-sp4): 61.7 % EF(sp4-el): 64.0 % SV(sp4-el): 65.4 ml LA A4 area: 15.8 cm2 LA dimension(2D): 3.8 cm RA A4 area: 14.6 cm2 TAPSE: 2.2 cm Time Measurements MV dec time: 0.22 sec Doppler Measurements & Calculations MV E max ernie: 74.5 cm/sec Lat Peak E' Ernie: 11.4 cm/sec Med Peak E' Ernie: 10.1 cm/sec MV A max ernie: 85.0 cm/sec E/E' lat: 6.5 E/E' med: 7.4 MV E/A: 0.88 Ao V2 max: 140.6 cm/sec LV V1 max: 133.2 cm/sec PA V2 max: 111.8 cm/sec Ao max P.9 mmHg LV V1 max P.1 mmHg ECHO/Echo Complete Interpretation Summary Normal LV size. Left ventricular systolic function is normal. The estimated ejection fraction is 65 %. Stage 1 diastolic dysfunction. Ordering Physician: Joselin Grey Referring Physician: Joselin Grey Performed By: Vaishnavi Campoverde, RDCS
--- NOTE | 2024-01-16 17:13 | STRESSREP ---
Stress Test Report Exercise myocardial perfusion stress test. 59-year-old lady with a history of a right bundle branch block Stress protocol: Resting EKG demonstrates normal sinus rhythm with a rate of 67 bpm resting blood pressure is 142/88 mmHg. The patient exercised according to the regular Toby protocol for a total duration of 9 minutes attaining a maximum heart rate of 151 bpm which was 94% of maximum predicted heart rate; the maximum workload was 10.4 metabolic equivalents. At rest there were no ST or T wave changes noted to suggest ischemia and at peak exercise upsloping ST changes only were noted which did not meet the criteria for ischemia. No clinical angina was noted the test was terminated due to the target heart rate being achieved/fatigue. The peak blood pressure was 192/84 mmHg. Rate-pressure product was 28,800. Myocardial perfusion protocol. 12 point mCi of technetium 99m sestamibi was injected at rest. The patient exercised according to regular Toby protocol for total duration of 9 minutes and at peak exercise 34.5 mCi of technetium 99m sestamibi was injected stress images were obtained stress and rest images were reconstructed in comparing the short axis vertical long and horizontal long axis. Gated images were also obtained. Perfusion SPECT analysis: Review of the stress images demonstrate normal uptake of tracer noted in all areas of the myocardium. The resting images similarly demonstrate normal uptake of tracer noted in all areas of the myocardium. No areas of reversibility are noted to suggest ischemia no previous infarct was noted. Gated SPECT analysis: The gated ejection fraction is 69%. Conclusion: Normal exercise myocardial perfusion stress test at a high workload Preserved ejection fraction.
== END | disposition home or self-care (01) ==
PROVIDERS: PCP Internal Medicine; Referring Provider Internal Medicine; Visit Provider Internal Medicine
DX: I45.10 Unspecified right bundle-branch block (principal)
CPT/HCPCS: 78452; 93017; 93306; A9500; A4216

== ENCOUNTER → 2024-02-10 | Outpatient (CLI) | payer OTHER, SELFPAY ==
--- NOTE | 2024-02-10 07:41 | BI_ITS ---
MAMMOGRAPHY - BILATERAL SCREENING REASON FOR EXAM: Female, 59 years old. Routine annual screening examination. PERTINENT HISTORY: Sister with breast cancer. Aunts with breast cancer. TECHNIQUE: Digital bilateral breast saul (3D mammographic acquisition) in the CC and MLO projections. 2-D mediolateral oblique (MLO) and craniocaudad (CC) views of both breasts were obtained. CAD: Full Field Digital Mammography with Computer Added Detection was performed. COMPARISON: Comparison is made with prior study dated February 04, 2023 and January 29, 2022. FINDINGS: Breast Composition: There are scattered areas of fibroglandular density. There are no dominant masses or suspicious calcifications. Stable fat-containing bilateral axillary lymph nodes. No other significant abnormalities are identified. There has been no significant change since the prior study. BI/SCRN MAMM (CAD)W/SAUL BILAT IMPRESSION: Stable bilateral screening mammogram. Yearly follow-up mammogram recommended. (A) ASSESSMENT CATEGORY: BIRADS Category 2: Benign. A letter regarding these results will be sent to the patient by the facility within 30 days. Approximately 10% of breast cancers are not detected by mammography. A normal mammogram should not delay biopsy of a clinically suspicious abnormality. [id number] Electronically Signed: Axel Birch MD at 9:58 EDT ,
== END | disposition home or self-care (01) ==
LOC: OPBI 07:40
PROVIDERS: PCP Internal Medicine; Visit Provider Internal Medicine
DX: Z12.31 Encounter for screening mammogram for malignant neoplasm of breast (principal)
CPT/HCPCS: 77063; 77067

== ENCOUNTER → 2025-02-15 | Outpatient (CLI) | payer OTHER, SELFPAY ==
--- NOTE | 2025-02-15 07:31 | BI_ITS ---
EXAM: SCRN MAMM (CAD)W/SAUL BILAT DATE: 02/15/2025 CLINICAL HISTORY: F, Age 60 y/o , SCRN MAMM (CAD)W/SAUL BILAT BREAST CANCER RISK ASSESSMENT: Na TECHNIQUE: Bilateral screening digital breast tomosynthesis with 2D and 3D images. Computer aided detection. COMPARISON: Prior exam(s) were compared FINDINGS: TISSUE DENSITY: The breast tissue is heterogenously dense, which may obscure small masses. Bilateral Breast Mammographic Findings: No suspicious masses, calcifications or other abnormalities are identified. BI/SCRN MAMM (CAD)W/SAUL BILAT IMPRESSION: OVERALL FINAL ASSESSMENT: BIRADS 1 NEGATIVE RECOMMENDATION: Routine annual follow-up in 1 Year A letter with findings and recommendations will be mailed to the patient. Reading Location: [id number]
== END | disposition home or self-care (01) ==
LOC: OPBI 07:29
PROVIDERS: PCP Internal Medicine; Referring Provider Internal Medicine; Visit Provider Internal Medicine
DX: Z12.31 Encounter for screening mammogram for malignant neoplasm of breast (principal)
CPT/HCPCS: 77063; 77067